=== PATIENT | male | born 1960 | race Caucasian/White ===

== ENCOUNTER 2018-02-22 17:09 | Emergency (ER) | payer BC ==
[2018-02-22] MEDS ORDERED: Aspirin 81 MG Tab.Chew PO ONE (19:58)
--- NOTE | 2018-02-22 20:16 | EDM.PDOC ---
ED HPI GENERAL MEDICAL PROBLEM - General Chief Complaint: Chest Pain Stated Complaint: CHEST PAIN Time Seen by Provider: 02/22/18 19:45 Source of Information: Reports: Patient, Family History Limitations: Reports: No Limitations - History of Present Illness INITIAL COMMENTS - FREE TEXT/NARRATIVE: c/o CP x 1m pt went to [facility], saw Becky STREETER who sent pt here for a "blood test " trop and EKG and labs neg here raul, gets CP x 1-2 min with exertion x 1m, relieved with rest has NTG with him (current NTG, <1y), not used nitro meds include ASA 81 mg qd, metoprolol 25 mg ER 1/2 tab qhs, amlodipine 10 mg qd , losaran/hctz 100-25 qd h/o angioplasty and stents 2006, h/oi LAD and ramus stents 03/21, s/p NSTEMI EKG tonight with no ST changes, has PRWP BP inc'd here 150/90 altho pt somewhat impatient and not clear how much is situational, nevertheless will increase metoprolol and have close f/u with CV, pt and agree Treatments ECONOMETRICIAN: Reports: EKG - Related Data Allergies Allergy/AdvReac Type Severity Reaction Status Date / Time cephalexin Allergy Abdominal Verified 02/22/18 17:46 Pain clarithromycin [From Biaxin] Allergy Abdominal Verified 02/22/18 17:46 Pain morphine Allergy Itching Verified 02/22/18 17:46 Past Medical History Cardiovascular History: Reports: High Cholesterol, Hypertension, MS, Stents Gastrointestinal History: Reports: GERD Musculoskeletal History: Reports: Arthritis, Back Pain, Chronic Neurological History: Reports: None Endocrine/Metabolic History: Reports: Diabetes, Type II, Obesity/BMI 30+ - Infectious Disease History Infectious Disease History: Reports: Chicken Pox, Measles, Mumps - Past Surgical History Cardiovascular Surgical History: Reports: Coronary Artery Stent Other Neurological Surgeries/Procedures: back surgery x 3. Musculoskeletal Surgical History: Reports: ORIF, Shoulder Surgery Other Musculoskeletal Surgeries/Procedures:: back surgery x 3, L ankle surgery, R rotator cuff surg R shoulder & R elbow. Social & Family History - Family History Family Medical History: Noncontributory - Tobacco Use Smoking Status *Q: Never Smoker - Caffeine Use Caffeine Use: Reports: Coffee, Soda - Alcohol Use Days Per Week of Alcohol Use: 2 Number of Drinks Per Day: 5 Total Drinks Per Week: 10 - Recreational Drug Use Recreational Drug Use: No ED ROS GENERAL - Review of Systems Review Of Systems: See Below Constitutional: Reports: No Symptoms HEENT: Reports: No Symptoms Respiratory: Reports: No Symptoms Cardiovascular: Reports: Chest Pain Endocrine: Reports: No Symptoms GI/Abdominal: Reports: No Symptoms : Reports: No Symptoms Musculoskeletal: Reports: No Symptoms Skin: Reports: No Symptoms Neurological: Reports: No Symptoms Psychiatric: Reports: No Symptoms Hematologic/Lymphatic: Reports: No Symptoms Immunologic: Reports: No Symptoms ED EXAM, GENERAL - Physical Exam Exam: See Below Exam Limited By: No Limitations General Appearance: Alert Eye Exam: Bilateral Eye: Normal Inspection Ears: Normal External Exam, Hearing Grossly Normal Nose: Normal Inspection, Normal Mucosa, No Blood Throat/Mouth: Normal Inspection, Normal Lips, Normal Teeth, Normal Gums, Normal Oropharynx, Normal Voice, No Airway Compromise Head: Atraumatic, Normocephalic Neck: Normal Inspection, Supple, Non-Tender, Full Range of Motion Respiratory/Chest: No Respiratory Distress, Lungs Clear, Normal Breath Sounds, No Accessory Muscle Use, Chest Non-Tender Cardiovascular: Regular Rate, Rhythm, No Edema, No Gallop, No JVD, No Murmur, No Rub, Other (no murmur) GI/Abdominal: Soft, Non-Tender, No Distention Back Exam: Normal Inspection, Full Range of Motion, NT Extremities: Normal Inspection, Normal Range of Motion, Non-Tender, No Pedal Edema Neurological: Alert, Oriented, CN II-XII Intact, Normal Cognition, No Motor/ Sensory Deficits Psychiatric: Normal Affect, Normal Mood Skin Exam: Warm, Dry, Intact, Normal Color, No Rash Lymphatic: No Adenopathy Course - Vital Signs Last Recorded V/S: Last Vital Signs Temp 36.9 C 02/22/18 17:15 Pulse 78 02/22/18 17:15 Resp 18 02/22/18 17:15 BP 165/82 H 02/22/18 17:15 Pulse Ox 99 02/22/18 17:15 - Orders/Labs/Meds Orders: Active Orders 24 hr Category Date Time Status EKG Documentation Completion [RC] ASDIRECTED Care 02/22/18 18:00 Active EKG 12 Lead [EK] Routine Ther 02/22/18 18:00 Ordered Labs: Laboratory Tests 02/22/18 02/22/1802/22/18 Range/Units 17:35 17:35 17:35 WBC 7.5 (4.5-12.0) X10-3/uL RBC 5.65 (4.30-5.75) x10(6)uL Hgb 14.7 (11.5-15.5) g/dL Hct 44.5 (30.0-51.3) % MCV 78.7 L (80-96) fL MCH 26.0 L (27.7-33.6) pg MCHC 33.1 (32.2-35.4) g/dL RDW 13.4 (11.5-15.5) % Plt Count 240 (125-369) X10(3)uL MPV 8.5 (7.4-10.4) fL Neut % (Auto) 66.7 (46-82) % Lymph % (Auto) 23.2 (13-37) % Armstrong % (Auto) 6.2 (4-12) % Eos % (Auto) 1 (1.0-5.0) % Baso % (Auto) 3 H (0-2) % Neut # (Auto) 5.0 (1.6-8.3) # Lymph # (Auto) 1.7 (0.6-5.0) # Armstrong # (Auto) 0.5 (0.0-1.3) # Eos # (Auto) 0.1 (0.0-0.8) # Baso # (Auto) 0.2 (0.0-0.2) # D-Dimer, Quantitative (0.0-0.59) mg/LFEU Sodium 136 (135-145) mmol/L Potassium 4.1 (3.5-5.3) mmol/L Chloride 99 L (100-110) mmol/L Carbon Dioxide 29 (21-32) mmol/L BUN 13 (7-18) mg/dL Creatinine 0.9 (0.70-1.30) mg/dL Est Cr Clr Drug Dosing 97.00 mL/min Estimated GFR (MDRD) > 60 (>60) BUN/Creatinine Ratio 14.4 (9-20) Glucose 148 H (80-116) mg/dL Calcium 9.3 (8.6-10.2) mg/dL Total Bilirubin 0.4 (0.1-1.3) mg/dL AST 50 H (5-25) IU/L ALT 56 H (12-36) U/L Alkaline Phosphatase 114 H (56-112) IU/L Troponin I < 0.017 L (<0.017-0.056) ng/mL C-Reactive Protein (0.5-0.9) mg/dL Total Protein 7.4 (6.0-8.0) g/dL Albumin 3.8 (3.5-5.2) g/dL Globulin 3.6 g/dL Albumin/Globulin Ratio 1.1 02/22/18 02/22/18 Range/Units 17:35 17:35 WBC (4.5-12.0) X10-3/uL RBC (4.30-5.75) x10(6)uL Hgb (11.5-15.5) g/dL Hct (30.0-51.3) % MCV (80-96) fL MCH (27.7-33.6) pg MCHC (32.2-35.4) g/dL RDW (11.5-15.5) % Plt Count (125-369) X10(3)uL MPV (7.4-10.4) fL Neut % (Auto) (46-82) % Lymph % (Auto) (13-37) % Armstrong % (Auto) (4-12) % Eos % (Auto) (1.0-5.0) % Baso % (Auto) (0-2) % Neut # (Auto) (1.6-8.3) # Lymph # (Auto) (0.6-5.0) # Armstrong # (Auto) (0.0-1.3) # Eos # (Auto) (0.0-0.8) # Baso # (Auto) (0.0-0.2) # D-Dimer, Quantitative 0.37 (0.0-0.59) mg/LFEU Sodium (135-145) mmol/L Potassium (3.5-5.3) mmol/L Chloride (100-110) mmol/L Carbon Dioxide (21-32) mmol/L BUN (7-18) mg/dL Creatinine (0.70-1.30) mg/dL Est Cr Clr Drug Dosing mL/min Estimated GFR (MDRD) (>60) BUN/Creatinine Ratio (9-20) Glucose (80-116) mg/dL Calcium (8.6-10.2) mg/dL Total Bilirubin (0.1-1.3) mg/dL AST (5-25) IU/L ALT (12-36) U/L Alkaline Phosphatase (56-112) IU/L Troponin I (<0.017-0.056) ng/mL C-Reactive Protein < 0.2 L (0.5-0.9) mg/dL Total Protein (6.0-8.0) g/dL Albumin (3.5-5.2) g/dL Globulin g/dL Albumin/Globulin Ratio Meds: Medications Discontinued Medications Generic Name Dose Route Start Last Admin Trade Name Freq PRN Reason Stop Dose Admin Aspirin 243 mg 02/22/18 19:58 Aspirin PO 02/22/18 19:59 ONETIME ONE Departure - Departure Time of Disposition: 20:16 Disposition: Home, Self-Care 01 Condition: Good Clinical Impression: Coronary artery disease with exertional angina Instructions: Angina Pectoris Referrals: Becky Watts NP [Primary Care Provider] - Additional Instructions: Continue current meds. Increase metoprolol 25 mg ER to 1 tab at bedtime. Continue to sit and rest if you have chest pain. If you still have pain after 2 minutes, take a nitroglycerin tab under the tongue and come to the Emergency Department. See your potato chip frier in the next week as he/she will likely want to schedule a stress test. Call your Physician or Return to Emergency Department if: * Your condition worsens in any way. * You develop fever greater than 100.4. * You have vomitting that does not stop with medications. * You have pain that is not controlled with medications. - My Orders Last 24 Hours: My Active Orders 02/22/18 18:00 EKG Documentation Completion [RC] ASDIRECTED EKG 12 Lead [EK] Routine - Assessment/Plan Last 24 Hours: My Active Orders 02/22/18 18:00 EKG Documentation Completion [RC] ASDIRECTED EKG 12 Lead [EK] Routine
[2018-02-22] MEDS ORDERED: Sodium Chloride 0.9% 10 ML Syringe FLUSH PRN (20:48)
== END 2018-02-22 20:25 | disposition home or self-care (01) ==
LOC: FB.ED 17:09
DX: I25.119 Atherosclerotic heart disease of native coronary artery with unspecified angina pectoris (principal); E78.00 Pure hypercholesterolemia, unspecified; I10 Essential (primary) hypertension; I25.2 Old myocardial infarction; K21.9 Gastro-esophageal reflux disease without esophagitis; E11.9 Type 2 diabetes mellitus without complications; Z88.1 Allergy status to other antibiotic agents; Z88.5 Allergy status to narcotic agent
CPT/HCPCS: 36415; 80053; 84484; 85025; 85379; 86140; 93005; 99285; A9270; J7050